=== PATIENT | female | born 1990 | race Caucasian/White ===

== ENCOUNTER 2020-03-27 13:45 | Emergency (ER) | payer OTHER ==
[~2020-03-27] VITALS: Ht 157.5 cm; Wt 85.2 kg
--- NOTE | 2020-03-27 13:56 | NUR ---
PT AMBULATED BACK TO THE ROOM FROM TRIAGE W/ A STEADY GAIT.
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
--- NOTE | 2020-03-27 14:15 | NUR ---
AT BEDSIDE FOR ED EVAL.
--- NOTE | 2020-03-27 14:39 | NUR ---
EVELIO RUSSO AT BEDSIDE.
[2020-03-27] MEDS ORDERED: OLANZAPINE 5 MG TABLET ONE (15:36)
[2020-03-27] MEDS ORDERED: OLANZAPINE 5 MG TABLET PO ONE (16:00)
[2020-03-27 16:04] VITALS: BP 111/74
--- NOTE | 2020-03-27 16:13 | NUR ---
MEAL TRAY DELIVERED.
--- NOTE | 2020-03-27 16:51 | NUR ---
Patient given discharge instructions and they have confirmed that they understand the instructions. Patient ambulatory with steady gait.
== END 2020-03-27 16:53 | disposition home or self-care (01) ==
LOC: ED 14:32
DX: F31.89 Other bipolar disorder (principal); F22 Delusional disorders; R45.1 Restlessness and agitation
CPT/HCPCS: 99284